=== PATIENT | female | born 1960 | race Caucasian/White ===

== ENCOUNTER → 2018-05-15 | Outpatient (CLI) | payer OTHER ==
--- NOTE | 2018-05-15 22:55 | CT ---
EXAMINATION TYPE: CT chest w con DATE OF EXAM: 05/15/2018 COMPARISON: None HISTORY: 58-year-old female Cough, Abnormal CXR. TECHNIQUE: Contiguous axial scanning of the chest after the administration of 100 mL of Isovue 300. Coronal/sagittal reconstructions performed. CT DLP: 126.8mGycm. Automatic exposure control utilized for a dose reduction. FINDINGS: Heart normal size with trace pericardial fluid/thickening. Aorta normal caliber with conventional arch vessel branching anatomy. No thoracic lymphadenopathy by CT size criteria. Visualized upper abdomen shows a hilar splenule and moderate stool burden. Mild circumferential bronchial wall thickening and mild emphysematous changes in the upper lung. Prom inent bands of scarring and atelectasis in the lower lungs. 6 mm posterior left basilar pulmonary nodule, axial image 49. No consolidation or pleural effusion. Bones: Mild endplate spondylosis upper to mid thoracic spine. No osseous destructive process. IMPRESSION: 1. COPD with mild emphysema and bandlike bibasilar areas of atelectasis or scarring. 2. A 6 mm posterior left basilar pulmonary nodule. Six-month follow-up CT recommended to reassess. 3. No abnormal lymphadenopathy or otherwise any acute process seen.
== END | disposition home or self-care (01) ==
LOC: RADCTMAIN 17:25
PROVIDERS: ATTEND Family Medicine
DX: J43.9 Emphysema, unspecified (principal); R91.8 Other nonspecific abnormal finding of lung field
CPT/HCPCS: 71260; Q9967

== ENCOUNTER → 2018-11-15 | Outpatient (CLI) | payer OTHER ==
--- NOTE | 2018-11-15 11:54 | CT ---
EXAMINATION TYPE: CT chest w con DATE OF EXAM: 11/15/2018 COMPARISON: 05/15/2018 HISTORY: Solitary pulmonary nodule CT DLP: 144.4 mGycm Automated exposure control for dose reduction was used. CONTRAST: CT scan of the chest is performed with IV Contrast, patient injected with 100 mL of Isovue 300. FINDINGS: LUNGS: The lungs are grossly clear, there is no concerning parenchymal mass or nodule identified. T here is no pleural effusion or pneumothorax seen. The tracheobronchial tree is patent.Mild circumfer ential bronchial wall thickening and mild emphysematous changes in the upper lung. Prominent bands of scarring and atelectasis in the lower lungs. 6 mm posterior left basilar pulmonary nodule, stable. T here are bilateral areas of subsegmental consolidation. No pleural effusion. No pneumothorax. MEDIASTINUM: There are no greater than 1 cm hilar or mediastinal lymph nodes. No pericardial effusi on is seen. Aorta of normal caliber. OTHER: Hypertrophic change of the spine. Heterogeneous thyroid enhances be associated with subcentim eter thyroid nodules or thyroiditis. IMPRESSION: 1. Stable 6 mm left lower lobe pulmonary nodule. Additional 6 month follow-up is recommended to stabl e mild COPD. 2. There are areas of groundglass and subsegmental consolidation. Atelectasis favored over pneumoniti s correlate clinically.
== END ==
LOC: RADCTMAIN 10:28
PROVIDERS: ATTEND Family Medicine
DX: R91.1 Solitary pulmonary nodule (principal); J98.11 Atelectasis
CPT/HCPCS: 71260; Q9967

== ENCOUNTER 2019-03-04 08:50 | Day surgery (SDC) | payer OTHER ==
[2019-03-01 09:10] VITALS: BMI 25.2
[~2019-03-04 08:50] MED LIST: LACTATED RINGERS 1,000 ML IV SCH; LIDOCAINE 1% 20 ML VIAL (10MG/ML) FOR IV START INTRADERMA PRN
[2019-03-04 09:38] VITALS: RESP 16; TEMP 98.8
[2019-03-04] MEDS ORDERED: LIDOCAINE 1% INJ 10MG/ML (20 ML MDV) ONE (09:47)
[2019-03-04] MEDS ORDERED: PROPOFOL 10 MG/ML 20 ML VIAL IV ONE (09:47)
[2019-03-04] MEDS ORDERED: GLUCAGON 1 MG/ML VIAL ONE (09:47)
--- NOTE | 2019-03-04 09:54 | P.GSHP ---
History of Present Illness H&P Date: 03/04/19 Chief Complaint: Screening colonoscopy This is a 59-year-old female who presents today for screening colonoscopy. Patient denies any significant GI complaints. Past Medical History Past Medical History: COPD, Fibromyalgia, GERD/Reflux, Hypertension, Thyroid Disorder Additional Past Medical History / Comment(s): CONSTIPATION History of Any Multi-Drug Resistant Organisms: None Reported Past Surgical History: Section Additional Past Surgical History / Comment(s): C-SEC X 2. D & C Past Anesthesia/Blood Transfusion Reactions: No Reported Reaction Smoking Status: Current every day smoker - Past Family History Mother Family Medical History: Deep Vein Thrombosis (DVT) Additional Family Medical History / Comment(s): MOTHER HAS AUTO IMMUNE DISORDER Medications and Allergies Home Medications Medication Instructions Recorded Confirmed Type Acetaminophen Tab [Tylenol Tab] 1,000 mg PO BID 03/01/19 03/04/19 History Albuterol Inhaler [Ventolin Hfa 1 - 2 puff INHALATION QID 03/01/19 03/04/19 History Inhaler] Aspirin [Adult Low Dose Aspirin EC] 81 mg PO DAILY 03/01/19 03/04/19 History Beclomethasone Dip 80 Mcg/Puff 1 puff INHALATION BID 03/01/19 03/04/19 History [Qvar 80 mcg] Cholecalciferol (Vitamin D3) 2,000 unit PO DAILY 03/01/19 03/04/19 History [Vitamin D3] Cyclobenzaprine [Flexeril] 10 mg PO HS 03/01/19 03/04/19 History Gabapentin 600 mg PO QID 03/01/19 03/04/19 History Levothyroxine Sodium 25 mcg PO DAILY 03/01/19 03/04/19 History Magnesium Oxide [Mag-Ox] 400 mg PO HS 03/01/19 03/04/19 History [place]-3 Fatty Acids/Fish Oil [Fish 1 each PO DAILY 03/01/19 03/04/19 History Oil 1,000 mg Softgel] Omeprazole 20 mg PO DAILY 03/01/19 03/04/19 History Pravastatin Sodium [Pravachol] 20 mg PO DAILY 03/01/19 03/04/19 History Ubidecarenone [Co Q-10] 200 mg PO DAILY 03/01/19 03/04/19 History Umeclidinium [place] [Incruse 62.5 mcg INHALATION DAILY 03/01/19 03/04/19 History Ellipta] buPROPion HCL [Wellbutrin SR] 150 mg PO DAILY 03/01/19 03/04/19 History l-Mefol/A-Cyst/Meb12/Algal Oil 1 each PO DAILY 03/01/19 03/04/19 History [Cerefolin [place]] Allergies Allergy/AdvReac Type Severity Reaction Status Date / Time No Known Allergies Allergy Verified 03/04/19 09:37 Surgical - Exam Vital Signs Temp Pulse Resp BP Pulse Ox 98.8 F 100 16 135/73 99 03/04/19 09:29 03/04/19 09:29 03/04/19 09:29 03/04/19 09:29 03/04/19 09:29 - General well developed, well nourished, no distress - Eyes PERRL - ENT normal pinna - Neck no masses - Respiratory normal expansion - Cardiovascular Rhythm: regular - Abdomen Abdomen: soft, non tender Assessment and Plan Assessment: We'll perform screening colonoscopy.
--- NOTE | 2019-03-04 10:07 | P.OP ---
Date of Procedure: 03/04/19 Preoperative Diagnosis: Screening colonoscopy Postoperative Diagnosis: Normal colon Procedure(s) Performed: Colonoscopy Anesthesia: MAC Surgeon: Clif Wallace Pathology: none sent Condition: stable Disposition: PACU Description of Procedure: PROCEDURE: The patient was placed on the endoscopy table in the lateral position. Digital rectal examination was performed which revealed no abnormalities. Flexible colonoscope was then placed in the patient's anus and passed throughout the entire colon. The ileocecal valve was visualized. The cecum, ascending, transverse, descending and sigmoid colon were normal. The rectum was normal as well. There were no masses, polyps or diverticula noted in the entire colon. SUMMARY OF FINDINGS: Normal colonoscopy.
[2019-03-04 10:25] VITALS: BP 107/72; PULSE 75
== END 2019-03-04 10:43 | disposition home or self-care (01) ==
LOC: ORWHC2ENDO 08:50
PROVIDERS: ATTEND Surgery
DX: Z12.11 Encounter for screening for malignant neoplasm of colon (principal); E07.9 Disorder of thyroid, unspecified; F17.200 Nicotine dependence, unspecified, uncomplicated; I10 Essential (primary) hypertension; J44.9 Chronic obstructive pulmonary disease, unspecified; K21.9 Gastro-esophageal reflux disease without esophagitis; M79.7 Fibromyalgia; Z79.82 Long term (current) use of aspirin; Z79.899 Other long term (current) drug therapy; Z79.890 Hormone replacement therapy; F41.9 Anxiety disorder, unspecified
CPT/HCPCS: J1610; J2001; J2704; G0121; 45378